=== PATIENT | female | born 1970 ===

== ENCOUNTER 2017-12-04 21:29 | Emergency (ER) | payer OTHER ==
[2017-12-04 21:38] VITALS: BP 136/79; PULSE 94; RESP 20; TEMP 97.9; O2SAT 100
--- NOTE | 2017-12-04 22:32 | C.PDOC ---
History Of Present Illness 47 y/o female c/o right posterior leg/knee pain for one week, worse since yesterday after twisting leg when walking. pt now unable to bear weight on right leg. pt reports right leg was swollen yesterday, better now. not on ocp, no recent prolonged immobilization, no cp or sob. pt given tramadol yesterday by her partner for pain. Time Seen by Provider: 12/04/17 21:47 Chief Complaint (Nursing): Lower Extremity Problem/Injury History Per: Patient, Family History/Exam Limitations: no limitations Onset/Duration Of Symptoms: Days (7) Current Symptoms Are (Timing): Worse Severity: Moderate - Ankle/Foot Alleviating Factor(s): Other (tramadol) Past Medical History Reviewed: Historical Data, Nursing Documentation, Vital Signs Vital Signs: Last Vital Signs Temp 97.9 F 12/04/17 21:35 Pulse 94 H 12/04/17 21:35 Resp 20 12/04/17 21:35 BP 136/79 12/04/17 21:35 Pulse Ox 100 12/04/17 22:32 - Medical History PMH: No Chronic Diseases Family History: States: Unknown Family Hx - Social History Hx Tobacco Use: No Hx Alcohol Use: No Hx Substance Use: No - Immunization History Hx Tetanus Toxoid Vaccination: No Hx Influenza Vaccination: No Hx Pneumococcal Vaccination: No Review Of Systems Constitutional: Negative for: Fever, Chills Cardiovascular: Negative for: Chest Pain Respiratory: Negative for: Shortness of Breath Skin: Positive for: Other (multiple varicose veins of both lower legs). Negative for: Rash Neurological: Negative for: Weakness, Numbness Physical Exam - Physical Exam Appears: Non-toxic, No Acute Distress Skin: Warm, Dry Cardiovascular: Rhythm Regular, No Murmur Respiratory: No Decreased Breath Sounds, No Rales, No Rhonchi, No Wheezing Extremity: Other (right knee with painful rom, tender in right popliteal fossa, no swelling noted to knee; anterior knee non tender or swollen. no pedal edema, mild right posterior calf tendeness, neg homans. ) Pulses: Left Femoral: Normal, Right Femoral: Normal, Left Dorsalis Pedis: Normal , Right Dorsalis Pedis: Normal Neurological/Psych: Oriented x3, Normal Speech, Normal Cognition, Normal Motor, Normal Sensation ED Course And Treatment O2 Sat by Pulse Oximetry: 100 Medical Decision Making Medical Decision Making: pt with right posterior knee/calf pain x 1 week, worse today. knee xray neg by my read for acute pathology. knee brace applied and pt feels more comfortable, able to tolerate weight beatring now; most likely a knee sprain/strain, however , given posterior knee/calf pain, pt advised to return tomorrow for venous doppler or rle to eval for dvt. pt aware of plan and understands. Disposition Counseled Patient/Family Regarding: Studies Performed, Diagnosis, Need For Followup - Disposition Referrals: Non [facility] Provider, [Primary Care Provider] - Disposition: HOME/ ROUTINE Disposition Time: 22:52 Condition: IMPROVED Additional Instructions: Use rodillera para mayor comodidad. Ibuprofeno para el dolor Regrese maana a ED para sonograma de la pierna derecha antes del medioda. Wear knee brace for comfort. Ibuprofen for pain. Return to ED tomorrow for sonogram of right lower leg before noon Prescriptions: Ibuprofen [Motrin] 600 mg PO TID #30 tab Instructions: Knee Pain (DC) Forms: Gen Discharge Inst Cypriot, [facility] (Cypriot) - Clinical Impression Clinical Impression: Right knee pain
--- NOTE | 2017-12-05 08:44 | RAD ---
PROCEDURE: Right Knee Radiographs. HISTORY: posterior knee pain COMPARISON: None. FINDINGS: BONES: Normal. No fracture. JOINTS: Early patellofemoral osteoarthritis. JOINT EFFUSION: Trace effusion. OTHER FINDINGS: None. IMPRESSION: Early patellofemoral osteoarthritis with trace effusion.
== END 2017-12-04 23:05 | disposition home or self-care (01) ==
LOC: C.ER 21:29 → SUPCPDRO 21:29 → C.ER 23:05
DX: M25.561 Pain in right knee (principal)

== ENCOUNTER 2017-12-05 11:21 | Emergency (ER) | payer OTHER ==
--- NOTE | 2017-12-05 12:23 | C.PDOC ---
History Of Present Illness 47 y/o female c/o right knee pain for one week. Pain worse with ambulation and movement. Notes she had some swelling to it a few days ago with improvement. Pt was evaluated in [facility] yesterday, knee XR completed and instructed to come in today for Doppler. NO SOB, chest pain, lower leg pain or swelling, No recent travel or immobilization, no BC. Time Seen by Provider: 12/05/17 12:23 Chief Complaint (Nursing): Lower Extremity Problem/Injury History Per: Patient History/Exam Limitations: no limitations Onset/Duration Of Symptoms: Days Current Symptoms Are (Timing): Still Present Past Medical History Vital Signs: Last Vital Signs Temp 97.9 F 12/05/17 14:21 Pulse 78 12/05/17 14:21 Resp 20 12/05/17 14:21 BP 111/80 12/05/17 14:21 Pulse Ox 98 12/05/17 15:10 Family History: States: Unknown Family Hx - Social History Hx Tobacco Use: No Hx Alcohol Use: No Hx Substance Use: No - Immunization History Hx Tetanus Toxoid Vaccination: No Hx Influenza Vaccination: No Hx Pneumococcal Vaccination: No Review Of Systems Except As Marked, All Systems Reviewed And Found Negative. Physical Exam - Physical Exam Appears: Well, Non-toxic, No Acute Distress Skin: Normal Color, Warm, Dry Head: Atraumatic, Normacephalic Eye(s): bilateral: Normal Inspection, EOMI Nose: Normal Oral Mucosa: Moist Neck: Normal, Normal ROM, Supple Chest: Symmetrical Respiratory: No Accessory Muscle Use Back: Normal Inspection Extremity: Normal ROM, Tenderness (posterior knee ), No Pedal Edema, No Calf Tenderness, Capillary Refill (<2 sec), No Swelling Extremity: Bilateral: Normal Color And Temperature, Normal ROM Pulses: Left Dorsalis Pedis: Normal, Right Dorsalis Pedis: Normal Neurological/Psych: Oriented x3, Normal Cognition, Normal Motor, Normal Sensation Gait: Steady ED Course And Treatment O2 Sat by Pulse Oximetry: 98 Progress Note: Vascular Duplex negative. XR from yesterday reviewed. Pt instructed to cont knee brace, RICE and follow up with ortho in 1-2 days. Disposition - Disposition Referrals: [facility] [Outside] Romelia Rain MD [Staff Provider] - Disposition: HOME/ ROUTINE Disposition Time: 15:14 Condition: STABLE Instructions: Knee Sprain (DC) Forms: [facility] (Georgian), Work Excuse Print Language: AFGHAN - Clinical Impression Clinical Impression: Right knee pain
[2017-12-05 14:22] VITALS: TEMP 97.9
[2017-12-05 15:33] VITALS: BP 106/75; PULSE 77; RESP 18; O2SAT 100
--- NOTE | 2017-12-05 15:33 | VASCLAB ---
PROCEDURE: Right Lower Extremity Venous Duplex Exam. HISTORY: pain PRIORS: None. TECHNIQUE: Right common femoral, femoral, popliteal and posterior tibial, peroneal and great saphenous veins were evaluated. Flow was assessed with color Doppler, compressibility, assessment of phasic flow and augmentation response. Report prepared by RANI Dowell, RVT FINDINGS: RIGHT: 1. Common Femoral Vein: 1.1. Compressibility - Fully compressible: Thrombus - None: Flow - Phasic: Augmentation -Normal: Reflux - None. 2. Femoral Vein: 2.1. Compressibility - Fully compressible: Thrombus - None: Flow - Phasic: Augmentation -Normal: Reflux - None. 3. Popliteal Vein: 3.1. Compressibility - Fully compressible: Thrombus - None: Flow - Phasic: Augmentation -Normal: Reflux - None. 4. Posterior Tibial Vein: 4.1. Compressibility - Fully compressible: Thrombus - None: Flow - Phasic: Augmentation -Normal: Reflux - None. 5. Peroneal Vein: 5.1. Compressibility - Fully compressible: Thrombus - None: Flow - Phasic: Augmentation -Normal: Reflux - None. 6. Great Saphenous Vein: 6.1. Compressibility - Fully compressible: Thrombus -None: Flow - Phasic: Augmentation - Normal: Reflux - None. OTHER FINDINGS: IMPRESSION: No evidence of deep or superficial vein thrombosis of the right lower extremity with excellent venous flow. Normal valve function noted of the right side. Normal venous flow noted in the left common femoral vein.
== END 2017-12-05 15:56 | disposition home or self-care (01) ==
LOC: C.ER 11:21
DX: M25.561 Pain in right knee (principal)